=== PATIENT | female | born 2000 | race Caucasian/White ===

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

== ENCOUNTER 2023-02-27 10:31 | Inpatient (IN) | payer BC ==
[2023-02-27 11:38] LABS: Appearance,Urine Cloudy (Clear); Bacteria,Urine Rare /hpf; Bilirubin,Urine Negative (Negative); Blood,Urine Negative (Negative); Color,Urine Yellow; Glucose,Urine (UA) 2+ (Negative); Ketones,Urine Trace (Negative); Leukocyte Esterase,Urine Moderate (Negative); Mucus,Urine Many /hpf; Nitrite,Urine Negative (Negative); PH, Urine 6.5 (5.0-8.0); Protein,Urine 1+ (Negative); RBC,Urine 1 /hpf (0-5); Specific Gravity,Urine 1.027 (1.001-1.035); Squamous Epithelial Cell,Urine 9 /hpf (0-4); Urobilinogen,Urine <2.0 mg/dL (<2.0); WBC,Urine 5 /hpf (0-5)
[2023-02-27 11:40] LABS: ALT 21 U/L (4-34); AST 29 U/L (14-36); African American GFR (CKD) >90 (>60 ml/min/1.73 sqM); Blood Urea Nitrogen 7 mg/dL (7-17); LDH 225 U/L (120-246); Non-African American GFR(CKD) >90 (>60 ml/min/1.73 sqM); Uric Acid 3.3 mg/dL (3.7-7.4)
[2023-02-27 11:57] LABS: Basophils % (A) 0 %; Eosinophils # (A) 0.1 k/uL (0-0.7); Eosinophils % (A) 1 %; HCT 35.4 % (34.0-46.0); HGB 12.1 gm/dL (11.4-16.0); Lymphocytes # (A) 2.1 k/uL (1.0-4.8); Lymphocytes % (A) 22 %; MCH 29.2 pg (25.0-35.0); MCHC 34.1 g/dL (31.0-37.0); MCV 85.8 fL (80.0-100.0); Mean Platelet Volume 12.1; Monocytes # (A) 0.4 k/uL (0-1.0); Monocytes % (A) 5 %; Neutrophils # (A) 6.6 k/uL (1.3-7.7); Neutrophils % (A) 71 %; Platelet Count 163 k/uL (150-450); RBC 4.12 m/uL (3.80-5.40); RDW 12.5 % (11.5-15.5); WBC 9.3 k/uL (4.0-11.0)
[2023-02-27 11:59] LABS: Creatinine,Urine Random 233.4 mg/dL; Protein/Creatinine Ratio,Urine 0.12
[2023-02-27] MEDS ORDERED: LIDOCAINE 0.5% (PF) 5 MG/ML (50 ML SDV) SQ PRN (12:36)
[2023-02-27] MEDS ORDERED: miSOPROStoL 200 MCG TAB PO PRN (12:36)
[2023-02-27] MEDS ORDERED: TERBUTALINE 1 MG/ML VIAL SQ PRN (12:36)
[2023-02-27] MEDS ORDERED: OXYTOCIN 10 UNIT/ML 1 ML VIAL IM PRN (12:36)
[2023-02-27] MEDS ORDERED: CARBOPROST TROMETHAMINE 250 MCG/ML 1 ML AMP IM PRN (12:36)
[2023-02-27] MEDS ORDERED: TRANEXAMIC 1,000 MG/100ML-NACL 1,000 MG in EMPTY BAG 1 BAG IV PRN (12:36)
[2023-02-27] MEDS ORDERED: METHYLERGONOVINE 0.2 MG/ML 1 ML AMP IM PRN (12:36)
[2023-02-27] MEDS ORDERED: OXYTOCIN 30 UNITS/500 ML NS 30 UNIT in SALINE 1 500ML.BAG IV SCH (12:45)
[2023-02-27] MEDS: LACTATED RINGERS 1,000 ML IV SCH (13:06)
[2023-02-27 13:18] LABS: Large Platelets Present
[2023-02-27 13:28] LABS: INR 0.9 (<1.2); Prothrombin Time 9.3 sec (9.0-12.0)
[2023-02-27] MEDS ORDERED: NALBUPHINE 10 MG/ML (10 ML MDV) IV PRN (18:03)
--- NOTE | 2023-02-27 18:03 | P.HPOB ---
History of Present Illness H&P Date: 02/27/23 Chief Complaint: Gestational hypertension This is a 22 year old at 38 weeks and 3 days with EDC of 03/10/2023 (by LMP consistent with 8 week US) who was sent over from the office after having elevated blood pressures. She denies headache, visual disturbances, and right u pper quadrant pain. Her has otherwise been uncomplicated. The fetus is estimated to weigh approximately 6 pounds and 9 ounces by a 37 week growth ultrasound. Upon arrival to triage, pre-eclampsia labs were all within normal limits and urine P:C was 0.1. Maternal work-up: blood type B positive, antibody screen negative, rubella immune, VDRL non-reactive, HBsAg negative, HIV negative, gonorrhea negative, chlamydia negative, 1 hour GTT 146, 3 hour GTT within normal limits, GBS negative. TDap administered 01/16/2023. Medical history: None Surgical history: None Past Medical History Past Medical History: No Reported History History of Any Multi-Drug Resistant Organisms: None Reported Past Surgical History: No Surgical Hx Reported Past Anesthesia/Blood Transfusion Reactions: No Reported Reaction Past Psychological History: No Psychological Hx Reported Smoking Status: Never smoker Past Drug Use History: None Reported - Past Family History Mother Family Medical History: No Reported History Medications and Allergies Home Medications Medication Instructions Recorded Confirmed Type Vit No.179/Iron/Folic 1 each PO DAILY 02/27/23 02/27/23 History [ Tablet] Allergies Allergy/AdvReac Type Severity Reaction Status Date / Time No Known Allergies Allergy Verified 02/27/23 10:54 Exam Vital Signs Temp Pulse Resp BP Pulse Ox 02/27/23 13:55 99.0 F 122 H 16 158/91 100 02/27/23 12:35 99 F 122 H 16 158/91 100 Intake and Output 02/27/23 02/27/23 02/27/23 06:59 14:59 22:59 Other: # Voids 1 Weight 59.421 kg Focused physical exam is performed. This is a healthy-appearing in no apparent distress. Breathing is non-labored. Abdomen is gravid and non-tender. Cervical exam is 1 centimeter, 70% effaced, and -3 station. AROM is undertaken for clear fluid. Extremities are non-tender and non-edematous. heart tones are Category I on pitocin. Results Result Diagrams: 02/27/23 11:14 02/27/23 11:14 Abnormal Lab Results - Last 24 Hours (Table) 02/27/23 02/27/23 Range/Units 11:02 11:14 Creatinine 0.47 L (0.52-1.04) mg/dL Uric Acid 3.3 L (3.7-7.4) mg/dL Urine Appearance Cloudy H (Clear) Urine Protein 1+ H (Negative) Urine Glucose (UA) 2+ H (Negative) Urine Ketones Trace H (Negative) Ur Leukocyte Esterase Moderate H (Negative) Ur Squamous Epith Cells 9 H (0-4) /hpf Urine Bacteria Rare H (None) /hpf Urine Mucus Many H (None) /hpf Assessment and Plan Assessment: 22 year old at 38 weeks and 3 days with newly diagnosed gestational hypertension who presents for medical induction of labor Plan: 1. Gestational HTN. PIH labs nl, P:C 0.1. Pt asymptomatic. 2. IOL. Oxytocoin per protocol, s/p AROM, IV nubain prn for pain. Time with Patient: Less than 30 (15 minutes)
[2023-02-27] MEDS ORDERED: fentaNYL (PF) 50 MCG/ML 5 ML AMP ONE (22:31)
[2023-02-27] MEDS ORDERED: ROPIVACAINE 5 MG/ML 20 ML AMPULE ONE (22:31)
[2023-02-27] MEDS ORDERED: SODIUM CHLORIDE 0.9% 100 ML BAG ONE (22:31)
[2023-02-28] MEDS: LACTATED RINGERS 1,000 ML IV SCH ×2 (00:43→19:35)
[2023-02-28] MEDS ORDERED: HYDROCORTISONE 2.5% RECTAL CREAM 30 GM TUBE RECTAL PRN (03:07)
[2023-02-28] MEDS ORDERED: IBUPROFEN 600 MG TAB PO PRN (03:07)
[2023-02-28] MEDS ORDERED: diphenhydrAMINE 50 MG CAP PO PRN (03:07)
[2023-02-28] MEDS ORDERED: ACETAMINOPHEN TAB 325 MG TAB PO PRN (03:07)
[2023-02-28] MEDS ORDERED: SIMETHICONE 80 MG CHEWABLE PO PRN (03:07)
[2023-02-28] MEDS ORDERED: ZOLPIDEM 5 MG TAB PO PRN (03:07)
[2023-02-28] MEDS ORDERED: LANOLIN CREAM 5 GM TUBE TOPICAL PRN (03:07)
[2023-02-28] MEDS ORDERED: diphenhydrAMINE 50 MG/ML 1 ML VIAL IVP PRN ×2 (03:07)
[2023-02-28] MEDS ORDERED: BENZOCAINE/MENTHOL SPRAY 1 GM/SPRAY AEROSOL TOPICAL PRN (03:07)
[2023-02-28] MEDS ORDERED: diphenhydrAMINE 25 MG CAP PO PRN (03:07)
--- NOTE | 2023-02-28 03:07 | P.PROBDLV ---
Vaginal Delivery Note - . Vaginal Delivery Note: DATE OF SERVICE: 02/28/2023 PROCEDURE: Normal Vaginal Delivery ATTENDING: Dr. Alejandra Guerrier MD ESTIMATED BLOOD LOSS: 200 mL FINDINGS: VFI, Apgars 8/8. Weight 6 pounds and 1 ounce (2760 grams) PROCEDURE: Ms. Vera is a 22 year old at 38 weeks and 3 days presenting to labor and delivery for medical induction of labor for newly diagnosed gestational hypertension. The has been otherwise uncomplicated. For further details, please review the admitting H&P. Pitocin was titrated per protocol. AROM was undertaken revealing clear amniotic fluid. The patient received epidural anesthesia per her request. While transitioning to complete, the patient had intermittent lates and variables. The patient was completely dilated at 144. She pushed effectively. The head was delivered without difficulty over an intact perineum. Nuchal cord x2 was reduced easily. The head was followed by the shoulders and body of the infant. A viable female was delivered at 240. The was placed on the maternal abdomen and bulb suctioned. Spontaneous cry was noted. Cord was clamped and cut after a 30-second delay. The infant was handed off to the pediatric team. Placenta was delivered whole with gentle cord traction at 244. Oxytocin was started to facilitate uterine tone. Uterine fundus was found to be firm and below the umbilicus upon fundal massage. Thorough examination of the cervix, vagina, periurethral area, and perineum revealed a small first degree perineal laceration. This was repaired in the usual fashion with 2-0 Vicryl. The patient is stable and allowed to begin the bonding process. Patient stable .
[2023-02-28] MEDS: SENNOSIDES-DOCUSATE SODIUM 1 EACH TAB PO SCH ×2 (19:35→20:33)
[2023-03-01] MEDS: SENNOSIDES-DOCUSATE SODIUM 1 EACH TAB PO SCH (07:47)
[2023-03-01 07:52] LABS: Basophils % (A) 0 %; Eosinophils # (A) 0.2 k/uL (0-0.7); Eosinophils % (A) 2 %; HGB 10.9 gm/dL (11.4-16.0); Lymphocytes # (A) 2.4 k/uL (1.0-4.8); Lymphocytes % (A) 23 %; MCH 28.9 pg (25.0-35.0); MCHC 33.1 g/dL (31.0-37.0); MCV 87.3 fL (80.0-100.0); Mean Platelet Volume 12.7; Monocytes # (A) 0.5 k/uL (0-1.0); Monocytes % (A) 5 %; Neutrophils # (A) 7.2 k/uL (1.3-7.7); Neutrophils % (A) 69 %; Platelet Count 130 k/uL (150-450); RBC 3.78 m/uL (3.80-5.40); WBC 10.4 k/uL (4.0-11.0)
[2023-03-01 07:59] VITALS: BP 124/77; PULSE 76; RESP 18; TEMP 98.2
--- NOTE | 2023-03-01 09:45 | P.DS ---
Providers Date of admission: 02/27/23 12:31 Expected date of discharge: 03/01/23 Attending physician: Alejandra Guerrier MD Primary care physician: Stated None - Discharge Diagnosis(es) (1) 38 weeks gestation of Current Visit: Yes Status: Acute (2) Gestational HTN Current Visit: Yes Status: Acute (3) Status post vaginal delivery Current Visit: Yes Status: Acute Hospital Course: This is a 22-year-old 1 para 0 that presented to labor and delivery on 02/27 for induction of labor secondary to gestational hypertension. Patient is 38 3/7 weeks, estimated due date of 03/10. For full details on this patient please see the dictated history and physical. Patient was admitted and Pitocin induction of labor was begun. Patient underwent amniotomy and clear fluid was obtained. Patient progressed through labor and did request epidural placement by the anesthesia department. Patient progressed to complete began pushing and had a normal spontaneous vaginal delivery of a viable female infant delivered at 240, weight of 6 lbs. 1 oz. Patient did sustain a first-degree vaginal laceration during delivery which was repaired in usual fashion. Patient has done well . On this day #1 she is a billing and voiding without difficulty. She is breast-feeding without difficulty. She is tolerating a regular diet without nausea or vomiting. She states her lochia is moderate. She would like discharge home. Plan - Discharge Summary New Discharge Prescriptions: No Action Vit No.179/Iron/Folic [ Tablet] 1 each PO DAILY Discharge Medication List Vit No.179/Iron/Folic [ Tablet] 1 each PO DAILY 02/27/23 [History] Follow up Appointment(s)/Referral(s): Alejandra Guerrier MD [STAFF PHYSICIAN] - 6 Weeks Patient Instructions/Handouts: Vaginal Delivery (GEN), Vaginal Delivery (DC) Activity/Diet/Wound Care/Special Instructions: No tub baths or intercourse until 6 weeks . Whmy-suw-upuibnz ibuprofen 600 mg every 6 hours as needed for pain. Patient is to call the office meters routine visit in 6 weeks. Should patient have any concerns prior to this appointment she is urged to call the office. Discharge Disposition: HOME SELF-CARE
== END 2023-03-01 11:40 | disposition home or self-care (01) | DRG 807 ==
LOC: FBPOP 10:31 → 4FBP 12:31
PROVIDERS: ADMIT Obstetrics & Gynecology; ATTEND Obstetrics & Gynecology
PROC: 3E033VJ Introduction of Other Hormone into Peripheral Vein, Percutaneous Approach (ICD-10-PCS; 2023-02-27)
PROC: 10907ZC Drainage of Amniotic Fluid, Therapeutic from Products of Conception, Via Natural or Artificial Opening (ICD-10-PCS; 2023-02-27)
PROC: 10E0XZZ Delivery of Products of Conception, External Approach (ICD-10-PCS; principal; 2023-02-28)
DX: O13.4 Gestational [pregnancy-induced] hypertension without significant proteinuria, complicating childbirth (principal); Z37.0 Single live birth; O69.81X0 Labor and delivery complicated by cord around neck, without compression, not applicable or unspecified; O70.0 First degree perineal laceration during delivery; Z3A.38 38 weeks gestation of pregnancy; Z28.311 Partially vaccinated for COVID-19
CPT/HCPCS: 36415; 59025; 81001; 82565; 82570; 83615; 84156; 84450; 84460; 84520; 84550; 85025; 85610; 86850; 86900; 86901